=== PATIENT | female | born 1995 | race Caucasian/White ===

== ENCOUNTER 2021-03-24 15:13 | Outpatient (CLI) | payer OTHER ==
[2021-03-24 17:03] VITALS: BP 127/81; PULSE 97; RESP 16; TEMP 97.1
--- NOTE | 2021-05-11 16:22 | P.MSEPDOC ---
Presenting Problems - Arrival Data Date of Arrival on Unit: 03/24/21 Time of Arrival on Unit: 15:13 Mode of Transport: Ambulatory - Complaint OB-Reason for Admission/Chief Complaint: Possible Onset of Labor Medical History - Information : 1 Para: 0 Term: 0 : 0 Abortions: Spontaneous or Elective: 0 Number of Living Children: 0 - Gestational Age Gestational Age by KASSY (wks/days): 37 Weeks and 6 Days - History Complications: GBS+ Review of Systems - Review of Systems Constitutional: No problems Breast: No problems ENT: No problems Cardiovascular: No problems Respiratory: No problems Gastrointestinal: No problems Genitourinary: No problems Musculoskeletal: No problems Neurological: No problems Skin: No problems Vital Signs - Temperature Temperature: 97.1 F Temperature Source: Temporal Artery Scan - Pulse Right Sitting Pulse Rate: 97 Pulse Assessment Method: Automatic Cuff - Respirations Respiratory Rate: 16 Oxygen Delivery Method: Room Air - Blood Pressure Right Arm Blood Pressure: 127/81 Blood Pressure Mean: 96 Blood Pressure Source: Automatic Cuff Medical Screen Scoring - Cervical Exam Dilation (cm): 1 Effacement (%): 50 Station: -2 Membranes: Intact - Uterine Contractions Frequency From (mins): 2 Frequency To (mins): 4 Duration From (seconds): 40 Duration To (seconds): 60 Intensity: Moderate Resting: Soft to palpation - Assessment - Baby A Baseline FHR: 135 Heart Rate - NICHD Category: Category I (Normal) NST: Reactive Physician Notification - Physician Notified Physician Notified Date: 03/24/21 Physician Notified Time: 16:46 Physician: Evan Galvan Order Received: Yes (d/chome) Maternal Triage Index - Non-Urgent/Priority 4 Non-Urgent Priority 4: Yes Criteria Met for Priority 4: reactive nst, vag exam 1cm/50%/-2 with no change after 1 hour Disposition - Disposition OB Disposition: Discharge to home Discharge Date: 03/24/21 Discharge Time: 16:50 I agree with the RN Medical Screening Exam: Yes Physician's MSE Comment: Patient was not seen or examined by myself Case reviewed; plan agreed upon as documented in EMR&OBIX.: Yes Diagnosis: FALSE LABOR AT OR AFTER 37 COMPLETED WEEKS OF GESTATION
== END 2021-03-24 16:50 | disposition home or self-care (01) ==
LOC: FBPOP 15:13
PROVIDERS: ATTEND Obstetrics & Gynecology Obstetrics
DX: O47.1 False labor at or after 37 completed weeks of gestation (principal); Z3A.37 37 weeks gestation of pregnancy
CPT/HCPCS: 59025; G0463; 99213

== ENCOUNTER 2021-03-26 13:15 | Inpatient (IN) | payer OTHER ==
[2021-03-26] MEDS: LACTATED RINGERS 1,000 ML IV SCH ×3 (14:18→15:53)
[2021-03-26] MEDS ORDERED: METHYLERGONOVINE 0.2 MG/ML 1 ML AMP IM PRN (14:19)
[2021-03-26] MEDS ORDERED: TERBUTALINE 1 MG/ML VIAL SQ PRN (14:19)
[2021-03-26] MEDS ORDERED: OXYTOCIN 10 UNIT/ML 1 ML VIAL IM PRN (14:19)
[2021-03-26] MEDS ORDERED: CARBOPROST TROMETHAMINE 250 MCG/ML 1 ML AMP IM PRN (14:19)
[2021-03-26] MEDS ORDERED: LIDOCAINE 0.5% (PF) 5 MG/ML (50 ML SDV) SQ PRN (14:19)
[2021-03-26] MEDS ORDERED: PENICILLIN G POTASSIUM 5,000,000 UNIT in DEXTROSE 5% IN WATER 100 ML IVPB STA ×2 (14:19)
[2021-03-26 14:26] LABS: Glucose,Whole Blood 70 mg/dL (75-99)
[2021-03-26 14:31] LABS: Basophils % (A) 0 %; Eosinophils # (A) 0.1 k/uL (0-0.7); Eosinophils % (A) 1 %; Hypochromasia Slight; Lymphocytes # (A) 2.8 k/uL (1.0-4.8); Lymphocytes % (A) 24 %; MCH 28.6 pg (25.0-35.0); MCHC 33.4 g/dL (31.0-37.0); MCV 85.5 fL (80.0-100.0); Mean Platelet Volume 8.2; Monocytes # (A) 0.4 k/uL (0-1.0); Monocytes % (A) 4 %; Neutrophils # (A) 8.1 k/uL (1.3-7.7); Neutrophils % (A) 69 %; Platelet Count 284 k/uL (150-450); Poikilocytosis Moderate; RBC 4.21 m/uL (3.80-5.40); RDW 15.2 % (11.5-15.5); WBC 11.7 k/uL (3.8-10.6)
[2021-03-26] MEDS ORDERED: SODIUM CHLORIDE 0.9% 100 ML BAG ONE (14:40)
[2021-03-26] MEDS ORDERED: fentaNYL (PF) 50 MCG/ML 5 ML AMP ONE (14:40)
[2021-03-26] MEDS ORDERED: ROPIVACAINE 5MG/ML 20ML VIAL ONE (14:40)
--- NOTE | 2021-03-26 14:50 | P.HPOB ---
History of Present Illness H&P Date: 03/26/21 Chief Complaint: Strong regular contractions This is a 25-year-old white female 1 para 0 EDC 04/08/2021 at 38 and one sevenths weeks' gestation. Patient presents with strong regular uterine contractions which she is rating 10 out of 10. She denies fluid leakage or vaginal bleeding. Fetus is been active throughout the . Obstetric history significant for blood type O negative, rubella status immune. VDRL testing, urine culture, hepatitis B surface antigen, HIV testing, gonorrhea and chlamydia cultures all negative. One-hour Glucola 153, 3 hour GTT consistent with gestational diabetes. Past medical history is essentially negative. Past surgical history excision of melanoma of the thigh at age 5. Current medications vitamins daily. ALLERGIES none known. Family history significant for hypertension, leukemia, brain cancer. Social history patient is single, father of the baby is involved. She works in a dental office. She denies tobacco alcohol or drug use. On exam patient is 5 foot 3 inches, 150 pounds, blood pressure 128/88. Vital signs are stable and she is afebrile. Cervix is 3 cm dilated, 100% effaced, -2 station, vertex presentation, anterior. heart rate is consistent with reactive NST. Impression: 38 and one sevenths weeks intrauterine , active spontaneous labor. Plan: Penicillin G has been instituted and will continue per protocol. Epidural is being placed per patient's request. After epidural we will proceed with artificial amniorrhexis. Close maternal and surveillance. Anticipate normal spontaneous vaginal delivery. Review of Systems Constitutional: Reports as per HPI Past Medical History History of Any Multi-Drug Resistant Organisms: None Reported Smoking Status: Never smoker Medications and Allergies Home Medications Medication Instructions Recorded Confirmed Type Pnv No.95/Ferrous Fum/Folic AC 1 tab PO DAILY 03/24/21 03/26/21 History [ Multivitamin Tablet] Allergies Allergy/AdvReac Type Severity Reaction Status Date / Time No Known Allergies Allergy Verified 03/24/21 15:28 Exam Intake and Output 03/25/21 03/26/21 03/26/21 22:59 06:59 14:59 Other: Weight 68.039 kg See dictation under HPI please Results Result Diagrams: 03/26/21 14:28 Abnormal Lab Results - Last 24 Hours (Table) 03/26/21 03/26/21 Range/Units 14:19 14:28 WBC 11.7 H (3.8-10.6) k/uL Neutrophils # 8.1 H (1.3-7.7) k/uL POC Glucose (mg/dL) 70 L (75-99) mg/dL Assessment and Plan Assessment: 38 and one sevenths weeks intrauterine , positive group B strep culture status, active spontaneous labor. All signs reassuring. Plan: Penicillin G protocol has been instituted. We will proceed with artificial amniorrhexis. Close maternal and surveillance. Epidural is being placed at this time. Anticipate normal spontaneous vaginal delivery. Time with Patient: Less than 30
[2021-03-26] MEDS ORDERED: OXYTOCIN 30 UNITS/500 ML NS 30 UNIT in SALINE 1 500ML.BAG IV SCH (16:15)
[2021-03-26] MEDS: PENICILLIN G POTASSIUM 2,500,000 UNIT in DEXTROSE 5% IN WATER 100 ML IVPB SCH ×2 (18:29)
[2021-03-26] MEDS ORDERED: SIMETHICONE 80 MG CHEWABLE PO PRN (19:44)
[2021-03-26] MEDS ORDERED: ZOLPIDEM 5 MG TAB PO PRN (19:44)
[2021-03-26] MEDS ORDERED: diphenhydrAMINE ELIXIR 25 MG/10 ML CUP PO PRN (19:44)
[2021-03-26] MEDS ORDERED: diphenhydrAMINE 50 MG CAP PO PRN (19:44)
[2021-03-26] MEDS ORDERED: diphenhydrAMINE 25 MG CAP PO PRN (19:44)
[2021-03-26] MEDS ORDERED: BENZOCAINE/MENTHOL SPRAY 1 GM/SPRAY AEROSOL TOPICAL PRN (19:44)
[2021-03-26] MEDS ORDERED: LANOLIN CREAM 5 GM TUBE TOPICAL PRN (19:44)
[2021-03-26] MEDS ORDERED: HYDROCORTISONE 2.5% RECTAL CREAM 30 GM TUBE RECTAL PRN (19:44)
[2021-03-26] MEDS ORDERED: diphenhydrAMINE 50 MG/ML 1 ML VIAL IVP PRN ×2 (19:44)
[2021-03-26] MEDS ORDERED: ACETAMINOPHEN TAB 325 MG TAB PO PRN (19:44)
--- NOTE | 2021-03-26 19:44 | P.PROBDLV ---
Vaginal Delivery Note - . Vaginal Delivery Note: This is a 25-year-old white female 1 para 0 EDC 04/08/2021 at 38 and one sevenths weeks' gestation who presented earlier this evening with strong regular uterine contractions. Rupee strep cultures were positive, blood type O-. Please see dictated history and physical for details. Patient was admitted, penicillin G prophylaxis was started. She did receive 2 doses per our protocol. Epidural was placed per her request. Oxytocin augmentation also started. Patient progressed well through the first stage of labor was judged to be completely dilated [place] 10877 hours. She began the second stage of labor at that time. With excellent maternal expulsive efforts the 's head crowned. The perineal body was prepped and draped in usual sterile fashion. Under controlled circumstances the 's head delivered occiput anterior and restituted accordingly. There was no nuchal cord noted. The left or anterior shoulder was gently delivered from underneath the pubic symphysis at which time the oropharynx, nasopharynx, and external nares were bulb suctioned. Patient was officially delivered of a liveborn male at 1927 hours. The umbilical cord was doubly clamped and ligated, he was handed to waiting nurses for evaluation where scores of 9 and 9 at one and 5 minutes respectively were given. The uterus is then massaged. The placenta quickly delivered, spontaneously, noted to be intact with trivascular cord. Careful inspection of the cervix, vagina, perineum, periurethral, and perirectal areas revealed no lacerations or defects. weighed 6 lbs. 5 oz. or 2865 g. All sponge needle and enhancement counts are correct. Patient is requesting circumcision for her infant son. Total estimated blood loss 200 mL's.
[2021-03-26] MEDS: IBUPROFEN 600 MG TAB PO PRN (21:22)
[2021-03-27] MEDS ORDERED: Rhogam IMMUNE GLOBULIN 1,500 UNIT/1 ML IM ONE (00:26)
[2021-03-27] MEDS: SENNOSIDES-DOCUSATE SODIUM 1 EACH TAB PO SCH ×2 (01:13→07:34)
[2021-03-27] MEDS: IBUPROFEN 600 MG TAB PO PRN ×2 (07:34→19:37)
[2021-03-27] MEDS: PENICILLIN G POTASSIUM 2,500,000 UNIT in DEXTROSE 5% IN WATER 100 ML IVPB SCH ×2 (07:36)
[2021-03-27] MEDS: LACTATED RINGERS 1,000 ML IV SCH (07:36)
--- NOTE | 2021-03-27 08:52 | P.PN ---
Subjective Progress Note Date: 03/27/21 Principal diagnosis: Doing well day #1 Slept well. Minimal lochia rubra. No complaint of pain. Requesting circumcision Objective - Vital Signs Vital signs: Vital Signs Temp 98.4 F 03/27/21 08:00 Pulse 99 03/27/21 08:00 Resp 18 03/27/21 08:00 BP 115/78 03/27/21 08:00 Pulse Ox 98 03/27/21 08:00 Intake & Output 03/26/21 03/27/21 03/27/21 18:59 06:59 18:59 Output Total 200 Balance -200 Weight 68.039 kg Output: Estimated Blood Loss 200 Other: # Voids 3 1 - Constitutional General appearance: Present: average body habitus, cooperative - EENT Eyes: Present: PERRLA ENT: Present: hearing grossly normal - Neck Neck: Present: normal ROM Thyroid: bilateral: normal size - Respiratory Respiratory: bilateral: CTA - Cardiovascular Rhythm: regular - Gastrointestinal General gastrointestinal: Present: normal bowel sounds - Integumentary Integumentary: Present: normal - Neurologic Neurologic: Present: CNII-XII intact - Musculoskeletal Musculoskeletal: Present: gait normal, strength equal bilaterally - Psychiatric Psychiatric: Present: A&O x's 3, appropriate affect, intact judgment & insight - Labs CBC & Chem 7: 03/26/21 14:28 Labs: Abnormal Lab Results - Last 24 Hours (Table) 03/26/21 03/26/21 Range/Units 14:19 14:28 WBC 11.7 H (3.8-10.6) k/uL Neutrophils # 8.1 H (1.3-7.7) k/uL POC Glucose (mg/dL) 70 L (75-99) mg/dL Assessment and Plan Assessment: Doing well first day Plan: I offered patient the option being discharged home later this evening when baby is 24 hours old. She is electing to spend one additional night, requesting discharge home tomorrow morning. Continue care. Incision on now. Time with Patient: Less than 30
[2021-03-28 07:54] VITALS: BP 120/68; PULSE 73; RESP 18; TEMP 98.3
[2021-03-28] MEDS: SENNOSIDES-DOCUSATE SODIUM 1 EACH TAB PO SCH (07:55)
--- NOTE | 2021-03-28 09:15 | P.DS ---
Providers Date of admission: 03/26/21 14:10 Expected date of discharge: 03/28/21 Attending physician: Farzana Aguilar Primary care physician: Stated None - Discharge Diagnosis(es) (1) Term Current Visit: Yes Status: Acute (2) Active labor Current Visit: Yes Status: Acute (3) Positive GBS test Current Visit: Yes Status: Acute Hospital Course: This is a 25-year-old G1 now P1 that presented to labor and delivery at 38 and one sevenths weeks on 03/26 with complaints of regular painful contractions. Patient denied loss of fluid at that time. Patient had known group B beta strep cultures were positive. Patient was admitted to labor and delivery and IV antibiotics were begun for prophylaxis. Patient underwent amniotomy and clear fluid was obtained. Patient did progress through labor and epidural was placed per patient request. Patient progressed to complete began pushing and had a normal spontaneous vaginal delivery of a viable male infant at 1924, weight 6 lbs. 5 oz., Apgars of 9 and 9 at one and 5 minutes respectively. No lacerations were appreciated. Patient's course has been uneventful. On this day #2 she is a billing and voiding without difficulty. She is tolerating a regular diet without nausea or vomiting. She wishes discharge home. Patient Condition at Discharge: Good Plan - Discharge Summary New Discharge Prescriptions: No Action Pnv No.95/Ferrous Fum/Folic AC [ Multivitamin Tablet] 1 tab PO DAILY Discharge Medication List Pnv No.95/Ferrous Fum/Folic AC [ Multivitamin Tablet] 1 tab PO DAILY 03/24/21 [History] Follow up Appointment(s)/Referral(s): Farzana Aguilar DO [Doctor of Osteopathic Medicine] - 4 Weeks Patient Instructions/Handouts: Vaginal Delivery (GEN), Vaginal Delivery (DC) Discharge Disposition: HOME SELF-CARE
== END 2021-03-28 14:15 | disposition home or self-care (01) | DRG 807 ==
LOC: FBPOP 13:15 → 4FBP 14:10
PROVIDERS: ADMIT Obstetrics & Gynecology; ATTEND Obstetrics & Gynecology Obstetrics
PROC: 10E0XZZ Delivery of Products of Conception, External Approach (ICD-10-PCS; principal; 2021-03-26)
DX: O99.824 Streptococcus B carrier state complicating childbirth (principal); Z37.0 Single live birth; Z80.6 Family history of leukemia; Z80.8 Family history of malignant neoplasm of other organs or systems; Z82.49 Family history of ischemic heart disease and other diseases of the circulatory system; Z85.820 Personal history of malignant melanoma of skin; Z86.32 Personal history of gestational diabetes; Z3A.38 38 weeks gestation of pregnancy
CPT/HCPCS: 59025; 85025; 85461; 86850; 86870; 86880; 86900; 86901; 99213